=== PATIENT | female | born 1970 | race Caucasian/White ===

== ENCOUNTER → 2022-04-05 | Outpatient (CLI) | payer OTHER | LOC: M LAB 12:43 | PROVIDERS: ATTEND Internal Medicine Gastroenterology | DX: R12 Heartburn (principal) ==

== ENCOUNTER → 2022-04-23 | Outpatient (REF) | payer OTHER ==
[~2022-04-23] MED LIST: ATOR1TAB19 PO; BUPR-69 PO; BUSP5TA PO; CETI-24 PO; LEXA1TAB PO; OMEP40CA4 PO; ROPI0.5T3 PO
[2022-04-27 17:08] LABS: CALPROTECTIN STOOL 47 ug/g (0-120); PANCREATIC ELASTASE STOOL 419 (>200)
== END ==
LOC: M LAB REF 11:54
PROVIDERS: ATTEND Internal Medicine Gastroenterology
DX: R12 Heartburn (principal)

== ENCOUNTER → 2022-04-24 | Outpatient (CLI) | payer OTHER | LOC: M LABSMTC 10:26 | PROVIDERS: ATTEND Anesthesiology | DX: Z01.812 Encounter for preprocedural laboratory examination (principal); Z11.52 Encounter for screening for COVID-19 ==

== ENCOUNTER 2022-04-27 09:03 | Day surgery (SDC) | payer OTHER ==
[~2022-04-27] VITALS: Ht 160 cm; Wt 88.0 kg
[~2022-04-27 09:03] MED LIST changes: +NS 1,000 ML IV ONE
[2022-04-27] MEDS ORDERED: propofoL 200 MG/20 ML VIAL As Ordered ONE (11:32)
[2022-04-27] MEDS ORDERED: fentaNYL 100 MCG/2 ML INJECTION As Ordered ONE (11:33)
[2022-04-27] MEDS ORDERED: LIDOCAINE 2% 100MG/5ML SDV (FOR ANES.) As Ordered ONE (11:33)
[2022-04-27 12:36] VITALS: BP 155/82
== END 2022-04-27 13:04 | disposition home or self-care (01) ==
LOC: M OPP 09:03
PROVIDERS: ATTEND Internal Medicine Gastroenterology
DX: D12.5 Benign neoplasm of sigmoid colon (principal); K64.8 Other hemorrhoids; K57.30 Diverticulosis of large intestine without perforation or abscess without bleeding; Z80.0 Family history of malignant neoplasm of digestive organs; E78.00 Pure hypercholesterolemia, unspecified; F32.9 Major depressive disorder, single episode, unspecified; F41.9 Anxiety disorder, unspecified; Z87.891 Personal history of nicotine dependence; Z79.1 Long term (current) use of non-steroidal anti-inflammatories (NSAID); Z79.02 Long term (current) use of antithrombotics/antiplatelets; Z79.899 Other long term (current) drug therapy
CPT/HCPCS: 43235; 45380; 45385; 88305; J3010